=== PATIENT | male | born 1965 | race Caucasian/White ===

== ENCOUNTER → 2020-06-24 | Outpatient (CLI) | payer MEDICARE, OTHER ==
[~2020-06-24] MED LIST: ASPI-515 PO; ATOR10TA9 PO; CITA40TA5 PO; DOCU-131 PO; FENO160T PO; FLUT1DIS3 INH; GABA-826 PO; METH750T2 PO; METO25TA91 PO; MORP-52 PO; MULT-658 PO; OMEG-76 PO; OMEG300C PO; OMEP20TA62 PO; OXYC5CAP2 PO; OXYC5TAB3 PO; POLY17PO5 PO; THIA100T67 PO; TIOT18CA INH
[2020-06-24 16:54] LABS: MEAN CORPUSCULAR HGB CONC 33.9 g/dL (33.2-36.2); PLATELET COUNT 242 x10^3/uL (130-400); RED BLOOD COUNT 4.82 x10^6/uL (4.38-5.82); RED CELL DISTRIBUTION WIDTH 12.2 % (9.4-14.8)
[2020-06-24 16:58] LABS: MICROSCOPIC NOT IND
[2020-06-24 17:04] LABS: ANION GAP 5 mmol/L (5-15); CALCIUM 9.2 mg/dL (8.5-10.1); CHLORIDE 107 mmol/L (98-107); CREATININE 1.21 mg/dL (0.7-1.3)
[2020-06-24 17:42] LABS: BASOPHILS # (AUTO) 0.03 x10^3/uL (0-0.1); BASOPHILS % (AUTO) 0 % (0-1); EOSINOPHILS # (AUTO) 0.07 x10^3/uL (0-0.4); EOSINOPHILS % (AUTO) 1 % (1-7); LYMPHOCYTES # (AUTO) 1.55 x10^3/uL (1-3.4); LYMPHOCYTES % (AUTO) 19 % (22-44); MD NO; MONOCYTES # (AUTO) 0.59 x10^3/uL (0.2-0.8); MONOCYTES % (AUTO) 7 % (2-9); NEUTROPHILS # (AUTO) 6.09 x10^3/uL (1.8-6.8); NEUTROPHILS % (AUTO) 73 % (42-75)
[2020-06-24 18:17] LABS: PROTHROMBIN TIME 10.3 Seconds (9.6-11.5)
== END | disposition home or self-care (01) ==
LOC: STAR 15:55
PROVIDERS: ATTEND Neurological Surgery
DX: Z01.818 Encounter for other preprocedural examination (principal); M50.30 Other cervical disc degeneration, unspecified cervical region
CPT/HCPCS: 36415; 71046; 80048; 81003; 85025; 85610; 85730; 93005

== ENCOUNTER → 2020-07-02 | Outpatient (CLI) | payer MEDICARE, OTHER ==
[~2020-07-02] MED LIST changes: +METH4TAB2 PO; +OXYC-302 PO; +TIZA4TAB2 PO
== END | disposition home or self-care (01) ==
LOC: STAR 15:22
PROVIDERS: ATTEND Anesthesiology
DX: Z01.812 Encounter for preprocedural laboratory examination (principal); Z20.828 Contact with and (suspected) exposure to other viral communicable diseases
CPT/HCPCS: 36415; 87635

== ENCOUNTER 2020-07-06 12:46 | Observation (INO) | payer MEDICARE, OTHER ==
[~2020-07-06] VITALS: Ht 182.9 cm; Wt 98.0 kg
[~2020-07-06 12:46] MED LIST changes: +BACITRACIN 50,000 UNIT ONE; +BUPIVACAINE/PF 0.25% ONE; +EPINEPHRINE 1 MG/ML, 1ML ONE; -METH4TAB2 PO; -OXYC-302 PO; -TIZA4TAB2 PO; +VANCOMYCIN 1,000 MG ONE
[2020-07-06] MEDS ORDERED: CHLORHEXIDINE 15 ML UDC MM STA (12:56)
[2020-07-06] MEDS ORDERED: CHLORHEXIDINE 15 ML UDC ONE (13:07)
[2020-07-06] MEDS ORDERED: LACTATED RINGERS 1,000 ML IV SCH (14:00)
[2020-07-06] MEDS ORDERED: FENTANYL PF 100 MCG/2ML ONE ×2 (14:46→18:26)
[2020-07-06] MEDS ORDERED: MIDAZOLAM 1 MG/ML, 2ML ONE (14:46)
[2020-07-06] MEDS ORDERED: PROPOFOL 10 MG/ML, 100ML IV ONE (16:26)
[2020-07-06] MEDS ORDERED: LIDOCAINE 2%, 20ML ONE (16:26)
[2020-07-06] MEDS ORDERED: FENTANYL PF 250 MCG/5ML ONE (17:04)
[2020-07-06] MEDS ORDERED: LABETALOL 5MG/ML, 20ML IV PRN (17:30)
[2020-07-06] MEDS ORDERED: METHOCARBAMOL 1,000 MG in DEXTROSE 5% 100 ML IV PRN (17:30)
[2020-07-06] MEDS ORDERED: ALBUTEROL SULFATE 2.5 MG/3 ML NPPB PRN (17:30)
[2020-07-06] MEDS ORDERED: OXYcodone 5 MG/5 ML ORAL.SOL UDC PO PRN (17:30)
[2020-07-06] MEDS ORDERED: hydrALAzine 20 MG/ML, 1ML IV PRN (17:30)
[2020-07-06] MEDS ORDERED: PROMETHAZINE 25 MG/ML, 1ML IVPush PRN (17:30)
[2020-07-06] MEDS ORDERED: ACETAMINOPHEN 325 MG TABLET PO PRN (17:30)
[2020-07-06] MEDS ORDERED: LORazepam 2 MG/ML, 1ML IVPush PRN (17:30)
[2020-07-06] MEDS ORDERED: MEPERIDINE/PF 25MG/0.5ML IVPush PRN (17:30)
[2020-07-06] MEDS ORDERED: NEOSTIGMINE 1 MG/ML, 10ML ONE (18:08)
[2020-07-06] MEDS ORDERED: CEFAZOLIN 1,000 MG ONE (18:08)
[2020-07-06] MEDS ORDERED: ONDANSETRON 2MG/ML, 2ML ONE (18:08)
[2020-07-06] MEDS ORDERED: SUCCINYLCHOLINE 20 MG/ML, 10ML ONE (18:08)
[2020-07-06] MEDS ORDERED: DEXAMETHASONE 4 MG/ML, 1ML ONE (18:08)
[2020-07-06] MEDS ORDERED: GLYCOPYRROLATE 0.2MG/1ML, 5ML ONE (18:08)
[2020-07-06] MEDS ORDERED: ROCURONIUM 10MG/ML,5ML ONE (18:08)
[2020-07-06] MEDS ORDERED: BUPIVACAINE/PF 0.25% ONE (18:20)
[2020-07-06] MEDS ORDERED: OXYcodone 5 MG/5 ML ORAL.SOL UDC ONE (18:27)
[2020-07-06] MEDS: FENTANYL PF 100 MCG/2ML IV PRN ×2 (18:33→18:37)
[2020-07-06] MEDS ORDERED: HYDROmorphone 2 MG/ML, 1ML ONE (18:49)
[2020-07-06] MEDS: HYDROmorphone 1 MG/ML, 1ML INJ IVPush PRN ×2 (18:54→19:10)
[2020-07-06 19:47] VITALS: BP 141/93
[2020-07-06] MEDS ORDERED: CYCLOBENZAPRINE 10 MG TABLET PO PRN (21:00)
[2020-07-06] MEDS ORDERED: ONDANSETRON 2MG/ML, 2ML IV PRN (21:00)
[2020-07-06] MEDS ORDERED: BISACODYL 10 MG SUPP PR PRN (21:00)
[2020-07-06] MEDS ORDERED: HYDROcodone/APAP 5/325 TABLET PO PRN (21:00)
[2020-07-06] MEDS ORDERED: DIPHENHYDRAMINE 25 MG CAPSULE PO PRN (21:00)
[2020-07-06] MEDS ORDERED: DIPHENHYDRAMINE 50 MG/ML, 1ML IVPush PRN (21:00)
[2020-07-06] MEDS ORDERED: ATORVASTATIN 10 MG TABLET PO SCH (21:00)
[2020-07-06] MEDS ORDERED: morphine SULFATE 10 MG/ML, 1ML IV PRN (21:00)
[2020-07-06] MEDS ORDERED: DIAZEPAM 5 MG TABLET PO PRN (21:00)
[2020-07-06] MEDS ORDERED: TIZANIDINE 4MG TABLET PO PRN (21:00)
[2020-07-06] MEDS ORDERED: DIAZEPAM 5 MG/ML, 2ML IV PRN (21:00)
[2020-07-06] MEDS ORDERED: MAGNESIUM HYDROXIDE 8%, 30ML UDC PO PRN (21:00)
[2020-07-06] MEDS ORDERED: NS + 20MEQ KCL 1,000 ML IV SCH (21:00)
[2020-07-06] MEDS: NS + 20MEQ KCL 1,000 ML IV SCH (21:30)
[2020-07-06] MEDS: OXYcodone IR 5MG TABLET PO PRN (22:21)
[2020-07-06] MEDS: METOPROLOL SUCCINATE 25 MG TAB.ER.24H PO SCH (22:23)
[2020-07-06] MEDS: DEXAMETHASONE 4 MG/ML, 1ML IV SCH (22:34)
[2020-07-06 23:53] VITALS: BP 164/77
[2020-07-07] MEDS: CEFAZOLIN PMX 1GM/50ML 50 ML IVPB SCH ×2 (02:53→11:00)
[2020-07-07] MEDS: OXYcodone IR 5MG TABLET PO PRN ×3 (02:54→09:58)
[2020-07-07] MEDS: DEXAMETHASONE 4 MG/ML, 1ML IV SCH (04:50)
[2020-07-07 04:56] VITALS: BP 137/89
[2020-07-07] MEDS ORDERED: OMEPRAZOLE 20 MG CAPSULE.DR PO SCH (06:00)
[2020-07-07] MEDS: NS + 20MEQ KCL 1,000 ML IV SCH (07:30)
[2020-07-07 08:32] VITALS: BP 121/73
[2020-07-07] MEDS ORDERED: OXYC-302 PO (08:33)
[2020-07-07] MEDS ORDERED: TIZA4TAB2 PO (08:33)
[2020-07-07] MEDS ORDERED: METH4TAB2 PO (08:33)
[2020-07-07] MEDS: METOPROLOL SUCCINATE 25 MG TAB.ER.24H PO SCH (08:34)
[2020-07-07] MEDS ORDERED: SENNA/DOCUSATE TABLET PO SCH (09:00)
[2020-07-07 11:31] VITALS: BP 107/71
[2020-07-07] MEDS ORDERED: DEXAMETHASONE 4 MG/ML, 1ML PO SCH (16:30)
== END 2020-07-07 12:20 | disposition home or self-care (01) ==
LOC: OUT 12:46 → 4NE 19:39 → OUT 21:39 → 4NE 21:40 → DCLOUNGE 07-07 12:10
PROVIDERS: ADMIT Neurological Surgery; ATTEND Neurological Surgery
DX: M50.122 Cervical disc disorder at C5-C6 level with radiculopathy (principal); M50.20 Other cervical disc displacement, unspecified cervical region; J44.9 Chronic obstructive pulmonary disease, unspecified; E78.5 Hyperlipidemia, unspecified; K21.9 Gastro-esophageal reflux disease without esophagitis; I10 Essential (primary) hypertension; Z87.891 Personal history of nicotine dependence; Z79.82 Long term (current) use of aspirin; Z79.899 Other long term (current) drug therapy
CPT/HCPCS: 63020; 72040; 96365; 96366; 96375; 96376; 97161; 97165; G0378; J0171; J0330; J0690; J1100; J1170; J2250; J2270; J2405; J2704; J2710; J2800; J3010; J3490; J3370